=== PATIENT | female | born 1945 | race Caucasian/White ===

== ENCOUNTER 2016-09-19 23:00 | Observation (INO) | payer MEDICARE ==
--- NOTE | ~2016-09-19 | HP ---
History And Physical [id number] [place]. [address] NAME: CARMEN MARQUEZ : 49 STATUS : ADM Jose PAT#: [id number] AGE: 71 ADM/REG DATE : 09/20/16 MR#: [id number] REPORT SERV DATE: 09/20/16 DICTATED BY: LARRY SUTTON DATE: 09/20/16 REPORT STATUS : Draft TRANSCRIBED BY: MODL DATE: 09/20/16 DATE OF ADMISSION: 09/20/2016 CHIEF COMPLAINT: Acute bleeding from the stomal area. HISTORY OF PRESENT ILLNESS: This is a 71-year-old female, who has a history of colon cancer and has a colostomy, has prior history of GI bleed, essential hypertension, atrial fibrillation, and congestive heart failure, who presents to the emergency room at [facility] with the above-mentioned complaint. History is obtained from the patient, and reviewing data available on the [employer] system. According to Mrs. Marquez, she had been in her usual state of health until yesterday in the afternoon, when she noticed the colostomy bag had blood. Subsequently she filled her whole bag full of bright red blood. She had one such episode a week or so ago when she had a very small amount in the colostomy bag and it went away. Today, however after the bleeding, she started looking pale and felt she was going to pass out. Subsequently, she decided to come to the emergency room to be evaluated. In the emergency room, initial evaluation revealed nonacute abdomen according to the CT of the abdomen and pelvis, she had no other significant findings. There was blood in the colostomy bag and a small ulcer in the stomal area and Hospitalist Service is asked to admit her for further evaluation and treatment. At the time of my evaluation, she denied any chest pain, palpitations, or orthopnea. She had no cough, hemoptysis, night sweats, or weight loss. She denied any fevers, chills, nausea, vomiting, diarrhea. No other history of recent falls or loss of consciousness. She denied any hematemesis or hematuria. No other history of recent travel or exposures other than those mentioned above. PAST MEDICAL HISTORY: Significant for history of colon cancer status post resection and placement of a colostomy, history of GI bleed in the past, congestive heart failure, diabetes mellitus type 2, essential hypertension, and atrial fibrillation. SOCIAL HISTORY: She does not smoke, drink, or use recreational drugs. FAMILY HISTORY: Noncontributory. MEDICATIONS: Her medications at home were reviewed by me in the chart today and reordered by me. REVIEW OF SYSTEMS: As in history of present illness. All other systems were reviewed in detail and are quite unremarkable. PHYSICAL EXAMINATION: GENERAL: This is a pleasant 71-year-old, not in any acute distress. History And Physical [address] [address] NAME: CARMEN MARQUEZ : 49 STATUS : ADM Jose PAT#: [id number] AGE: 71 ADM/REG DATE : 09/20/16 MR#: [id number] REPORT SERV DATE: 09/20/16 DICTATED BY: LARRY SUTTON DATE: 09/20/16 REPORT STATUS : Draft TRANSCRIBED BY: CHARU DATE: 09/20/16 HEENT: Her head is atraumatic and normocephalic. She is alert, awake, oriented to time, place, and person. Her pupils are equal, reacting to light and accommodating. External ocular muscles are intact. Membranes are moist and pink. She appears pale. Sclerae nonicteric. NECK: Supple with no jugular venous distention, lymphadenopathy, or thyromegaly. LUNGS: Clear to auscultation with no wheezes, rubs, or crackles. HEART: Heart sounds were regular with no murmurs, rubs, or gallops. ABDOMEN: Soft and nontender. Bowel sounds are present. EXTREMITIES: Trace pitting edema, otherwise without any cyanosis or clubbing. NEUROLOGIC: Grossly intact. No focal sensory or motor deficits. Higher functions appeared intact. Gait was not examined at this time. VITAL SIGNS: Her vital signs today showed a temperature of 97.4, pulse 97, respirations 16 a minute, blood pressure was 145/68, and oxygen saturations were 100% on 2 L of oxygen via nasal cannula. LABORATORY DATA: Reviewed on the [employer] system showed a CMP with a potassium of 3.2, otherwise within normal limits. Blood glucose was 114. Lactate was 1.8 today. CBC showed a white blood cell count of 3800, hemoglobin was 7.5, hematocrit 25.4, and platelet count was 108,000. Her MCV was 79.1. Prothrombin time was 15 with an INR of 1.2 today. Urinalysis was not performed. Films of the CT scan of her abdomen and pelvis were reviewed by me on the PACS today and official Radiology report was also reviewed. There is no acute abdominal pathology. Please see report for details. IMPRESSION: 1. Acute stomal bleed. 2. Symptomatic anemia. 3. Essential hypertension. 4. Atrial fibrillation. 5. Congestive heart failure. 6. Diabetes mellitus type 2. 7. Hypokalemia. PLAN: We will admit Mrs. Marquez to the Hospitalist Service for a 24-hour observation period. We will type cross and transfuse one unit of PRBC for her symptomatic anemia. Place her on bedrest and consult Dr. George to see her in the morning. We will keep her n.p.o. for now. There appears to be a small ulceration on the stomal margin which could be the reason of her bleed. Meanwhile, we will control blood sugars with NovoLog given subcutaneously per sliding scale. Continue all other medications and treatments while she is here. We will replace her potassium, follow chemistry, electrolytes, and replace as needed. We will also check her magnesium today. She will be placed on SCDs for DVT prophylaxis while she is here. I have discussed the above plans with the patient. Her questions were answered, and she is agreeable to the above recommendations. History And Physical [address] [address] NAME: CARMEN MARQUEZ : 49 STATUS : ADM Jose PAT#: [id number] AGE: 71 ADM/REG DATE : 09/20/16 MR#: [id number] REPORT SERV DATE: 09/20/16 DICTATED BY: LARRY SUTTON DATE: 09/20/16 REPORT STATUS : Draft TRANSCRIBED BY: MODL DATE: 09/20/16 Further recommendations will follow after Dr. George has had a chance to see her. /CHARU Larry Sutton M.D. / [id number] CC: Aric Usama Jr Bryant MD Patrick Rhyne, M.D.
--- NOTE | ~2016-09-19 | CN ---
Consultation Report [address] [facility] [place]. [address] NAME: CARMEN MARQUEZ : 49 STATUS : ADM Jose PAT#: [id number] AGE: 71 ADM/REG DATE : 09/20/16 MR#: [id number] REPORT SERV DATE: 09/21/16 DICTATED BY: GE HUGO DATE: 09/20/16 REPORT STATUS : Draft TRANSCRIBED BY: MODL DATE: 09/20/16 CONSULTATION DATE OF CONSULTATION: HISTORY OF PRESENT ILLNESS: This is a 71-year-old white female with recurrent bleeding from her colostomy stoma. She did this back in 01/2016, was treated with silver nitrate which controlled with hemoglobin remission 7.5. She has received 1 unit and now essentially brown stool in her ostomy bag with a trace of bright red blood. The patient had colon cancer had radiation chemo, is followed by Dr. Oneill. The patient is diabetic. SOCIAL HISTORY: Negative. FAMILY HISTORY: Negative. Has history of hypertension, history of atrial fibrillation off Coumadin, some history of CHF, she does take aspirin. CT of abdomen this admission negative. 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 Last colonoscopy 2013 with small polyp. White count 3800, hemoglobin as described above, platelets 100,000. PHYSICAL EXAMINATION: GENERAL: Well-nourished white female, alert and oriented x3. HEENT: Anicteric. CHEST: Clear. HEART: Regular rate and rhythm. No murmur or gallop. ABDOMEN: Soft, nontender. Colostomy noted with brown stool in the bag with a small amount of bright red blood in junction of the skin and stoma probable site of bleeding. EXTREMITIES: Grossly intact. NEUROLOGIC: Grossly intact. ASSESSMENT: 1. Status post colon cancer with colostomy radiation chemo. 2. Recurrent bleeding from stoma. 3. Fatty liver cirrhosis history of grade 1 varices. 4. History of atrial fibrillation. 5. History of breast cancer. 6. Diabetes mellitus. 7. Hypertension. 8. Anemia. Hemoglobin 7.5. SUGGESTIONS: 1. Continued followup. H and H is pending. Additional transfusion if recurrent bleeding. 2. Will ask nurse to evaluate as well. Will advance diet. We will Consultation Report [address] [place]. [address] NAME: CARMEN MARQUEZ : 49 STATUS : ADM Jose PAT#: [id number] AGE: 71 ADM/REG DATE : 09/20/16 MR#: [id number] REPORT SERV DATE: 09/21/16 DICTATED BY: GE HUGO DATE: 09/20/16 REPORT STATUS : Draft TRANSCRIBED BY: CHARU DATE: 09/20/16 follow with you. Thank you for this consultation. DC/CHARU Ge Hugo M.D. / [id number] CC: Aric Bryant Jr, MD Patrick Rhyne, M.D.
--- NOTE | ~2016-09-19 | DS ---
Discharge Summary [facility] [address] [place]. [address] NAME: CARMEN MARQUEZ : 49 STATUS : DIS Jose PAT#: [id number] AGE: 71 ADM/REG DATE : 09/20/16 MR#: [id number] REPORT SERV DATE: 09/22/16 DICTATED BY: JR. BRYANT WILLIAM JOHN DATE: 09/21/16 REPORT STATUS : Draft TRANSCRIBED BY: CHARU DATE: 09/21/16 ADMISSION DATE: 09/20/2016 DISCHARGE DATE: 09/21/2016 DISCHARGE DIAGNOSES: Include: 1. Acute lower gastrointestinal bleed from the ostomy site. Treated with styptic pencils. 2. Acute blood loss anemia on chronic anemia. 3. Essential hypertension. 4. History of atrial fibrillation. 5. History of congestive heart failure. 6. Diabetes mellitus type 2. 7. Air-fluid levels in the pre-existing seroma with no evidence of infection. OPERATIONS/PROCEDURES AND TREATMENT: Include: 1. CT of the abdomen and pelvis done 09/20/2016, which showed ostomy with large peristomal hernia from prior colon resection. No obstruction with retrocecal soft tissues now with an air-fluid level and otherwise decreased size postsurgical seroma suggesting possibility of secondary infection. There was evidence of cirrhosis with splenomegaly. There was cardiomegaly with trace ascites. 2. Urine culture was felt to be asymptomatic colonization. CONSULTING PHYSICIAN: Dr. George of Gastroenterology. DISCHARGE MEDICATIONS: Include: 1. Aspirin 81 mg orally daily. 2. Amiodarone 200 mg orally daily. 3. Coreg 6.25 mg orally twice a day. 4. Celexa 10 mg orally daily. 5. Lasix 40 mg orally daily. 6. Cozaar 50 mg orally daily. 7. Nystatin powder twice a day. 8. Protonix 40 mg daily. 9. Potassium chloride 20 mEq twice a day. 10.Primidone 50 mg daily. 11.Aldactone 25 mg orally daily. 12.Silver nitrate stick p.r.n. for peristomal bleeding. HOSPITAL COURSE: The patient is a 71-year-old female with a history of colon cancer with prior resection and prior history of peristomal bleeding, who presented to the emergency room with acute bleeding. For complete details of the history, physical, and presenting data, please see Dr. Ravee's dictated history and physical. Her admitting hemoglobin was 7.5. The patient was admitted to the Clinical Decision Unit. She was transfused with 1 unit of packed red blood cells. Her hemoglobin increased to 8. She is discharged at hemoglobin of 7.8 without evidence of bleeding. The patient was seen in consultation by Dr. George, who Discharge Summary [address] [place]. [address] NAME: CARMEN MARQUEZ : 49 STATUS : DIS Jose PAT#: [id number] AGE: 71 ADM/REG DATE : 09/20/16 MR#: [id number] REPORT SERV DATE: 09/22/16 DICTATED BY: JR. BRYANT WILLIAM JOHN DATE: 09/21/16 REPORT STATUS : Draft TRANSCRIBED BY: CHARU DATE: 09/21/16 felt no acute intervention was necessary, recommended silver nitrate sticks to the peristomal area p.r.n. for bleeding. Also recommended follow up with her general surgeon, Dr. Oneill. The patient also had urine culture which grew gram-negative rods. However, there was no evidence of infection. Therefore, this is considered to be asymptomatic bacteriuria. The patient will be discharged home 09/21/2016 and will follow up with Dr. Oneill as well as Dr. Eusebio Beatty. DISCHARGE DIET: ADA. ACTIVITY: As tolerated. FOLLOWUP ISSUES: 1. Follow up with Dr. Oneill regarding air-fluid level in the postsurgical seroma. 2. Routine health issues. WJF/BARBARAL Aric Bryant Jr, MD / [id number] CC: Aric Brynat Jr, MD Patrick Rhyne, M.D.
[~2016-09-19 23:00] MED LIST: *UNABLE1; ACET500CAP PO; ALDACTONE PO; AMIODARONE PO; ANTIBIOTIC PO; ASAB PO; AUG875 PO; C25 PO; C5 PO; CALTRA600D PO; CEFT2 PO; CEFT5 PO; CELEXA10 PO; CELEXA20 PO; CITRUCELSF PO; COR20 PO; COR40 PO; CORDARONE PO; COREG12 PO; COREG3 PO; COREG6 PO; COUMADIN PO; COZ25 PO; COZ50 PO; COZAAR100 MG PO; DIL4TAB PO; DITRO5 PO; FERGON240 MG PO; FERROUS GLUCONATE PO; FERROUS SULF325 M1 PO; FISH OIL1200 MG PO; FLAG500TAB PO; FLONASE NAS; GLUCOPHAGE1000 MG PO; HAIR VITAMIN PO; HARD NAILS PO; HUMALOG SC; IRON PO; JANTOVEN PO; JANTOVEN1 MG PO; JANTOVEN3 MG; JANTOVEN3 MG PO; KDUR20 PO; KLOR-CON M2020 MEQ PO; L20 PO; L40 PO; LASIX PO; LEVAQUIN750 MG PO; LISINOPRIL PO; LOSARTAN PO; LOVENOX80 SC; MACROBID PO; MCZ25 PO; METFORMIN PO; MIRALAXPKT PO; MOMUD PO; MUCINEX600 MG PO; NORCO1 TA1 PO; NUIRONCAP; NYSTATPOW TOP; PACERONE200 MG PO; PERCOCET1 TA2 PO; POTASSIUM PO; PRIM50B PO; PRIN5 PO; PROTONIX PO; REQUIP25 PO; SPIRO25 PO; TESS PO; ULTRAM50 PO; ZOFRAN4 PO; [UNRECOGNIZED DRUG - OTHER] PO; [UNRECOGNIZED DRUG - REMARK] PO
[2016-09-19 23:26] LABS: BASOPHILS 0.8 %; BASOPHILS ABSOLUTE 0.03 10/3/uL (0.0-0.16); EOSINOPHILS 2.9 %; EOSINOPHILS ABSOLUTE 0.11 10/3/uL (0.0-0.53); ER CBC TAT 0 Hrs 07 Mins; HEMATOCRIT 25.4 % (36.0-48.0); HEMOGLOBIN 7.5 g/dL (12.0-16.0); LYMPHOCYTES 14.2 %; LYMPHOCYTES ABSOLUTE 0.54 10/3/uL (0.67-4.30); MEAN CORPUS HGB CONC 29.5 g/dL (32.0-36.0); MEAN CORPUSCULAR HEMOGLOB 23.4 pg (26.0-34.0); MEAN PLATELET VOLUME 9.1 fL (9.2-13.0); MONOCYTES 5.5 %; MONOCYTES ABSOLUTE 0.21 10/3/uL (0.21-1.20); NEUTROPHILS 76.6 %; NEUTROPHILS ABSOLUTE 2.92 10/3/uL (2.02-8.40); PLATELET COUNT 108 10/3/uL (150-400); RBC DISTRIBUTION WIDTH 16.8 % (12.0-16.0); RED CELL COUNT 3.21 10/6/uL (4.0-5.6); WHITE BLOOD CELLS 3.8 10/3/uL (4.5-10.5)
[2016-09-19 23:28] LABS: MANUAL DIFF NO %; MEAN CORPUSCULAR VOLUME 79.1 fL (80-100)
[2016-09-19 23:34] LABS: INTERNATIONAL NORMAL RATI 1.2 UNITS (-); PARTIAL THROMBO TIME 28.6 SEC (22.5-37.2)
[2016-09-19 23:37] LABS: PROTIME (NOT ORD) 15.2 SEC (12.0-14.5)
[2016-09-19 23:40] LABS: BUN (BLOOD UREA NITROGEN) 7 MG/DL (6-23); CALCIUM, SERUM 8.2 MG/DL (8.5-10.4); CHLORIDE, SERUM 106 MMOL/L (96-112); CO2 (CARBON DIOXIDE) 25 MMOL/L (24-34); CREATININE 0.72 MG/DL (0.55-1.02); GFR AFRICAN AMERICAN 99 ML/MIN (>=60); GFR NON AFRICAN AMERICAN 85 ML/MIN (>=60); GLUCOSE, SERUM 114 MG/DL (60-99); POTASSIUM, SERUM 3.2 MMOL/L (3.5-5.3); SGOT(AST) 26 U/L (5-40); SGPT(ALT) 14 U/L (5-65); SODIUM, SERUM 141 MMOL/L (135-148)
[2016-09-19 23:41] LABS: A/G RATIO 0.6 (0.7-1.9); ALBUMIN 2.9 G/DL (3.5-5.0); ALKALINE PHOSPHATASE 110 U/L (45-117); GLOBULIN 4.8 G/DL (2.5-4.1); TOTAL BILIRUBIN 1.2 MG/DL (0-1.2); TOTAL PROTEIN 7.7 G/DL (6.0-8.5)
[2016-09-20 15:15] LABS: BASOPHILS 1.1 %; BASOPHILS ABSOLUTE 0.04 10/3/uL (0.0-0.16); EOSINOPHILS 6.3 %; EOSINOPHILS ABSOLUTE 0.22 10/3/uL (0.0-0.53); HEMATOCRIT 26.5 % (36.0-48.0); MEAN CORPUS HGB CONC 30.2 g/dL (32.0-36.0); MEAN CORPUSCULAR VOLUME 79.3 fL (80-100); MEAN PLATELET VOLUME 8.8 fL (9.2-13.0); MONOCYTES 8.5 %; NEUTROPHILS 67.1 %; NEUTROPHILS ABSOLUTE 2.36 10/3/uL (2.02-8.40); PLATELET COUNT 91 10/3/uL (150-400); RBC DISTRIBUTION WIDTH 16.9 % (12.0-16.0); RED CELL COUNT 3.34 10/6/uL (4.0-5.6); WHITE BLOOD CELLS 3.5 10/3/uL (4.5-10.5)
[2016-09-20 15:17] LABS: MANUAL DIFF NO %
[2016-09-20 15:30] LABS: BUN (BLOOD UREA NITROGEN) 5 MG/DL (6-23); CALCIUM, SERUM 8.3 MG/DL (8.5-10.4); CHLORIDE, SERUM 112 MMOL/L (96-112); CO2 (CARBON DIOXIDE) 25 MMOL/L (24-34); GFR AFRICAN AMERICAN 108 ML/MIN (>=60); GFR NON AFRICAN AMERICAN 93 ML/MIN (>=60); GLUCOSE, SERUM 117 MG/DL (60-99); PHOSPHORUS, SERUM 2.8 MG/DL (2.5-4.5); POTASSIUM, SERUM 3.8 MMOL/L (3.5-5.3); SODIUM, SERUM 145 MMOL/L (135-148)
[2016-09-20 17:19] LABS: ASCORBIC ACID (UR NOT ORDER) NEG (NEG); BILIRUBIN, URINE NEGATIVE (NEG); KETONE, URINE NEGATIVE (NEG); LEUKOCYTE ESTERASE(NOT OR LARGE (NEG); WBC (NOT ORDERED) (RFLEX) 16 (0-5)
[2016-09-21 04:17] LABS: BASOPHILS 0.9 %; BASOPHILS ABSOLUTE 0.02 10/3/uL (0.0-0.16); EOSINOPHILS 7.4 %; EOSINOPHILS ABSOLUTE 0.17 10/3/uL (0.0-0.53); HEMATOCRIT 26.4 % (36.0-48.0); HEMOGLOBIN 7.8 g/dL (12.0-16.0); LYMPHOCYTES ABSOLUTE 0.55 10/3/uL (0.67-4.30); MEAN CORPUS HGB CONC 29.5 g/dL (32.0-36.0); MEAN CORPUSCULAR HEMOGLOB 23.5 pg (26.0-34.0); MEAN CORPUSCULAR VOLUME 79.5 fL (80-100); MEAN PLATELET VOLUME 9.6 fL (9.2-13.0); MONOCYTES 6.6 %; MONOCYTES ABSOLUTE 0.15 10/3/uL (0.21-1.20); NEUTROPHILS 61.1 %; PLATELET COUNT 93 10/3/uL (150-400); RED CELL COUNT 3.32 10/6/uL (4.0-5.6)
[2016-09-21 04:19] LABS: MANUAL DIFF NO %; WHITE BLOOD CELLS 2.3 10/3/uL (4.5-10.5)
[2016-09-21 04:35] LABS: BUN (BLOOD UREA NITROGEN) 6 MG/DL (6-23); C-REACTIVE PROTEIN 6.4 MG/L (<8.0); CALCIUM, SERUM 8.3 MG/DL (8.5-10.4); CHLORIDE, SERUM 113 MMOL/L (96-112); CO2 (CARBON DIOXIDE) 27 MMOL/L (24-34); CREATININE 0.71 MG/DL (0.55-1.02); GFR AFRICAN AMERICAN 101 ML/MIN (>=60); GFR NON AFRICAN AMERICAN 87 ML/MIN (>=60); GLUCOSE, SERUM 98 MG/DL (60-99); POTASSIUM, SERUM 4.1 MMOL/L (3.5-5.3); SODIUM, SERUM 145 MMOL/L (135-148)
[2016-09-21 06:08] LABS: PROCALCITONIN <0.05 ng/mL (<0.5)
[2016-09-21] MEDS ORDERED: SILVER NITRATE (16:04)
[2017-01-17] MEDS ORDERED: MAGOX4 PO (17:09)
[2017-01-17] MEDS ORDERED: FERROUS SULF325 M1 PO (17:10)
[2017-01-21] MEDS ORDERED: FERROUS SULF325 M1 PO (01:20)
[2017-01-21] MEDS ORDERED: COREG6 PO (01:20)
[2017-01-21] MEDS ORDERED: ASAB PO (01:20)
[2017-01-21] MEDS ORDERED: CELEXA10 PO (01:20)
[2017-01-21] MEDS ORDERED: CORDARONE PO (01:20)
[2017-01-21] MEDS ORDERED: HARD NAILS PO (01:21)
[2017-01-21] MEDS ORDERED: COZ50 PO (01:21)
[2017-01-21] MEDS ORDERED: L40 PO (01:21)
[2017-01-21] MEDS ORDERED: MAGOX4 PO (01:22)
[2017-01-21] MEDS ORDERED: KDUR20 PO (01:22)
[2017-01-21] MEDS ORDERED: PROTONIX PO (01:22)
[2017-01-21] MEDS ORDERED: SPIRO25 PO (01:23)
[2017-01-21] MEDS ORDERED: PRIM50B PO (01:23)
[2017-01-21] MEDS ORDERED: IBU-200200 MG PO (01:25)
[2017-01-21] MEDS ORDERED: SILVER NITRATE STICK TOP (01:26)
[2017-01-26] MEDS ORDERED: DURICEF PO (11:11)
[2017-03-02] MEDS ORDERED: SINGULAIR1 PO (13:14)
[2017-03-02] MEDS ORDERED: ACET500CAP PO (13:15)
== END 2016-09-21 18:00 | disposition home or self-care (01) ==
LOC: ER 23:00 → CDU1 09-20 06:26
PROVIDERS: Emergency Medicine; Internal Medicine; Internal Medicine Pulmonary Disease
DX: K94.01 Colostomy hemorrhage (principal); D62 Acute posthemorrhagic anemia; I48.91 Unspecified atrial fibrillation; I50.9 Heart failure, unspecified; E11.9 Type 2 diabetes mellitus without complications; E87.6 Hypokalemia; K74.60 Unspecified cirrhosis of liver; I11.0 Hypertensive heart disease with heart failure; Z79.82 Long term (current) use of aspirin; Z79.899 Other long term (current) drug therapy; Z91.040 Latex allergy status; Z88.8 Allergy status to other drugs, medicaments and biological substances
CPT/HCPCS: 36415; 36430; 74176; 80048; 80053; 81001; 82962; 83605; 83735; 84100; 84132; 84145; 85025; 85610; 85730; 86140; 86850; 86900; 86901; 86920; 87077; 87086; 87186; 93005; 96365; 96366; 96374; 96375; 99285; A9270-GY; C9113; G0378; P9016

== ENCOUNTER 2016-11-11 04:29 | Emergency (ER) | payer MEDICARE, OTHER ==
[2016-11-11 04:22] LABS: BASOPHILS 0.6 %; BASOPHILS ABSOLUTE 0.02 10/3/uL (0.0-0.16); EOSINOPHILS 6.5 %; ER CBC TAT 0 Hrs 05 Mins; HEMATOCRIT 23.9 % (36.0-48.0); IMMATURE GRANULOCYTES 0.3 %; IMMATURE GRANULOCYTES ABSOLUTE 0.01 10/3/uL (0.0-0.11); LYMPHOCYTES 20.3 %; LYMPHOCYTES ABSOLUTE 0.63 10/3/uL (0.67-4.30); MANUAL DIFF NO %; MEAN CORPUS HGB CONC 29.3 g/dL (32.0-36.0); MEAN CORPUSCULAR HEMOGLOB 22.3 pg (26.0-34.0); MEAN CORPUSCULAR VOLUME 76.1 fL (80-100); MEAN PLATELET VOLUME 9.2 fL (9.2-13.0); MONOCYTES 7.7 %; MONOCYTES ABSOLUTE 0.24 10/3/uL (0.21-1.20); NEUTROPHILS 64.6 %; PLATELET COUNT 81 10/3/uL (150-400); RBC DISTRIBUTION WIDTH 16.8 % (12.0-16.0); RED CELL COUNT 3.14 10/6/uL (4.0-5.6); WHITE BLOOD CELLS 3.1 10/3/uL (4.5-10.5)
[2016-11-11 04:28] LABS: INTERNATIONAL NORMAL RATI 1.3 UNITS (-); PARTIAL THROMBO TIME 30.2 SEC (22.5-37.2); PROTIME (NOT ORD) 16.5 SEC (12.0-14.5)
[~2016-11-11 04:29] MED LIST changes: +SILVER NITRATE
[2017-01-17] MEDS ORDERED: MAGOX4 PO (17:09)
[2017-01-17] MEDS ORDERED: FERROUS SULF325 M1 PO (17:10)
[2017-01-21] MEDS ORDERED: COREG6 PO (01:20)
[2017-01-21] MEDS ORDERED: FERROUS SULF325 M1 PO (01:20)
[2017-01-21] MEDS ORDERED: ASAB PO (01:20)
[2017-01-21] MEDS ORDERED: CORDARONE PO (01:20)
[2017-01-21] MEDS ORDERED: CELEXA10 PO (01:20)
[2017-01-21] MEDS ORDERED: COZ50 PO (01:21)
[2017-01-21] MEDS ORDERED: L40 PO (01:21)
[2017-01-21] MEDS ORDERED: HARD NAILS PO (01:21)
[2017-01-21] MEDS ORDERED: MAGOX4 PO (01:22)
[2017-01-21] MEDS ORDERED: KDUR20 PO (01:22)
[2017-01-21] MEDS ORDERED: PROTONIX PO (01:22)
[2017-01-21] MEDS ORDERED: SPIRO25 PO (01:23)
[2017-01-21] MEDS ORDERED: PRIM50B PO (01:23)
[2017-01-21] MEDS ORDERED: IBU-200200 MG PO (01:25)
[2017-01-21] MEDS ORDERED: SILVER NITRATE STICK TOP (01:26)
[2017-01-26] MEDS ORDERED: DURICEF PO (11:11)
[2017-03-02] MEDS ORDERED: SINGULAIR1 PO (13:14)
[2017-03-02] MEDS ORDERED: ACET500CAP PO (13:15)
== END 2016-11-11 05:00 | disposition home or self-care (01) ==
LOC: ER 04:29
PROVIDERS: Emergency Medicine
DX: N99.520 Hemorrhage of incontinent external stoma of urinary tract (principal); I11.0 Hypertensive heart disease with heart failure; I50.9 Heart failure, unspecified; I48.91 Unspecified atrial fibrillation; E11.9 Type 2 diabetes mellitus without complications; D64.9 Anemia, unspecified; Z85.038 Personal history of other malignant neoplasm of large intestine; Z91.040 Latex allergy status; Z79.82 Long term (current) use of aspirin; Z79.891 Long term (current) use of opiate analgesic; Z79.899 Other long term (current) drug therapy
CPT/HCPCS: 85025; 85610; 85730; 99284